=== PATIENT | male | born 1975 | race African-American/Black ===

== ENCOUNTER 2017-04-24 09:16 | Observation (INO) | payer BC ==
[2017-04-24] MEDS ORDERED: Famotidine 20 MG/2 ML SDV IVPUSH ONE (09:21)
[2017-04-24] MEDS ORDERED: Aspirin 81 MG Tab.Chew CHEW ONE (09:21)
[2017-04-24] MEDS ORDERED: Ticagrelor 90 MG Tab PO ONE (09:21)
[2017-04-24] MEDS ORDERED: Sodium Chloride 0.9% 10 ML Syringe FLUSH PRN ×2 (09:21→10:42)
[2017-04-24] MEDS ORDERED: Metoprolol Tartrate 5 MG/5 ML SDV IVPUSH ONE (09:21)
[2017-04-24] MEDS ORDERED: diphenhydrAMINE 50 MG/ML SDV IVPUSH ONE (09:25)
[2017-04-24] MEDS ORDERED: methylPREDNISolone Sodium Succinate 125 MG/2 ML SDV IVPUSH ONE (09:26)
[2017-04-24] MEDS ORDERED: Ondansetron 4 MG/2 ML SDV IVPUSH ONE (09:33)
--- NOTE | 2017-04-24 09:33 | EDM.PDOC ---
ED HPI GENERAL MEDICAL PROBLEM - General Chief Complaint: Chest Pain Stated Complaint: Chest Pain Time Seen by Provider: 04/24/17 09:26 Source of Information: Reports: Patient, EMS, EMS Notes Reviewed. Denies: Old Records (No [facility] records available) History Limitations: Reports: No Limitations - History of Present Illness INITIAL COMMENTS - FREE TEXT/NARRATIVE: The patient was brought to the emergency room via ambulance with aviation medicine specialist accompaniment with initial evaluation by basic EMS and subsequent intercept with the paramedics. Patient apparently had 8/10 retrosternal chest pressure with radiation to the left shoulder and mid left arm and associated with some mild diaphoresis, dyspnea, and nausea. He is allergic to aspirin with no aspirin given in route, although the patient did receive 3 sublingual nitroglycerin tablets with improvement of his chest discomfort to 4/10 in route. He was chest pain-free at time of arrival to our facility. The patient also received O2 at 4 L/m by nasal cannula with saline lock placed prior to arrival. He has had similar type symptoms on a monthly basis during the last 6 months with last episode about 2 months ago. The patient denies any heart flutter, dizziness, orthostasis, orthopnea, paresthesias, recent decreased exercise tolerance, or any other anginal-type symptoms. He has had some intermittent heartburn type symptoms during the last 6 months with last episode 2 days ago and good response to OTC antacids. No recent history of other abdominal pain, diarrhea, melena, gross hematochezia, or any food intolerance, including fatty foods, etc. with normal bowel movement yesterday evening. The patient also denies any recent fever, wheezing, dyspnea, etc., although he has had a mild clear productive cough during the last couple of days with OTC cough medicines and no known exposure to infection. He is having some current increased stressors secondary to problems with his and also with problems at work. Onset: Today, Sudden Onset Date: 04/24/17 Onset Time: 08:00 Duration: Resolved Prior to Arrival Location: Reports: Chest, Upper Extremity, Left, Radiates to (As above). Denies : Head, Face, Neck, Abdomen, Back, Pelvis, Upper Extremity, Right, Lower Extremity, Left Quality: Reports: Pressure, Same as Previous Episode Severity: Moderate Improves with: Reports: Medication Worsens with: Reports: None Context: Reports: Other (As above) Associated Symptoms: Reports: Chest Pain, cough w sputum (As above), Diaphoresis , Nausea/Vomiting (No emesis), Shortness of Breath. Denies: Confusion, Fever/ Chills, Headaches, Loss of Appetite, Malaise, Rash, Seizure, Syncope, Weakness Treatments FOOT DOCTOR: Reports: IV/IO, Nitroglycerin (As above), Oxygen. Denies: Aspirin Left Arm Pain Score (Numeric/FACES): 0 - Related Data Allergies Allergy/AdvReac Type Severity Reaction Status Date / Time aspirin Allergy Swelling Verified 04/24/17 09:22 Home Meds: Home Meds . [No Known Home Meds] 04/24/17 [History] Past Medical History HEENT History: Reports: None. Denies: Allergic Rhinitis, Cataract, Glaucoma, Hard of Hearing, Impaired Vision, Macular Degeneration, Retinal Detachment Cardiovascular History: Reports: None, Other (See Below). Denies: Afib, Aneurysm, Arrhythmia, Blood Clots/VTE/DVT, CAD, Heart Failure, Heart Murmur, High Cholesterol, Hypertension, [place], PVD, SOB on Exertion, Syncope Other Cardiovascular History: he does not know cholesterol status Respiratory History: Reports: None. Denies: Asthma, Bronchitis, Recurrent, COPD , Intubation, Previous, PE, Pneumonia, Recurrent, Pneumothorax, Sleep Apnea Gastrointestinal History: Reports: GERD. Denies: Celiac Disease, Cholelithiasis , Chronic Constipation, Chronic Diarrhea, GI Bleed, Hepatitis, Inflammatory Bowel Disease, Irritable Bowel Syndrome, Jaundice, Pancreatitis, PUD Genitourinary History: Denies: Acute Renal Failure, BPH, Chronic Renal Insuffiency, Renal Calculus, STD, Urinary Incontinence, UTI, Recurrent Musculoskeletal History: Reports: None. Denies: Amputation, Arthritis, Back Pain, Chronic, Fracture, Gout, Neck Pain, Chronic, Osteoarthritis, RA, SLE Neurological History: Reports: None. Denies: Cerebral Aneurysms, Concussion, CVA, Headaches, Chronic, Head Trauma, Migraines, MS, Parkinson's, Seizure, TIA Psychiatric History: Reports: Anxiety, Depression, Psych Hospitalization(s), Suicide Attempt, Suicidal Ideation, Other (See Below). Denies: Abuse, Victim of , ADD, ADHD, Addiction, PTSD Other Psychiatric History: Inpatient treatment for attempted suicide with pill overdose at about age 15 Endocrine/Metabolic History: Reports: None. Denies: Diabetes, Type I, Diabetes , Type II, Hypothyroidism, IDDM Hematologic History: Reports: None. Denies: Anemia, Blood Transfusion(s), Iron Deficiency Immunologic History: Reports: None. Denies: AIDS, HIV, SLE Oncologic (Cancer) History: Reports: None. Denies: Basal Cell Carcinoma, Hodgkin's Lymphoma, Leukemia, Lymphoma, Malignant Melanoma, Non-Hodgkin's Lymphoma, Squamous Cell Carcinoma Dermatologic History: Reports: None. Denies: Eczema, Psoriasis - Infectious Disease History Infectious Disease History: Reports: Chicken Pox. Denies: C-Difficile, Measles , Meningitis, Mononucleosis, MRSA, Mumps, Pertussis (Whooping Cough), Rheumatic Fever, Rubella, Scarlet Fever, Shingles, VRE - Past Surgical History Head Surgeries/Procedures: Reports: None HEENT Surgical History: Reports: Oral Surgery, Other (See Below). Denies: Adenoidectomy, Detached Retina, Eye Surgery, Laser Surgery, LASIK, Myringotomy w Tube(s), Naso-Sinus Surgery, Tonsillectomy Other HEENT Surgeries/Procedures: [place] teeth extraction in his mid 20s Cardiovascular Surgical History: Reports: None. Denies: Varicose Respiratory Surgical History: Reports: None. Denies: Thoracentesis GI Surgical History: Reports: None. Denies: Appendectomy, Cholecystectomy, Colonoscopy, EGD, Hernia, Abdominal, Hernia, Inguinal, Hernia Repair/Other Male Surgical History: Reports: Circumcision, Other (See Below). Denies: Vasectomy Other Male Surgeries/Procedures: Circumcision as an Endocrine Surgical History: Reports: None. Denies: Thyroid Biopsy Neurological Surgical History: Reports: None. Denies: C-Spine, Discectomy, Laminectomy, Lumbar Spine, Spinal Fusion, Vertebroplasty Musculoskeletal Surgical History: Reports: None. Denies: Arthroscopic Knee, Arthroscopic Procedure, Carpal Tunnel, Ganglion Cyst, Joint Replacement, ORIF, Shoulder Surgery Oncologic Surgical History: Reports: None Dermatological Surgical History: Reports: None - Past Imaging History Past Imaging History: Reports: None Social & Family History - Family History HEENT: Reports: Glaucoma, Other (See Below). Denies: Allergic Rhinitis, Macular Degeneration, Retinal Detachment Other HEENT Family History: Mother and paternal uncle with glaucoma Cardiac: Reports: None. Denies: Aneurysm, Arrhythmia, Blood Clots/VTE/DVT, CAD , Heart Failure, High Cholesterol, Hypertension, [place], PVD/COD, Other (See Below) Respiratory: Reports: None. Denies: Asthma, COPD, PE, Pneumothorax, Sleep Apnea GI: Reports: None. Denies: Celiac Disease, Cholelithiasis, Colon Polyps, GERD, GI bleed, Inflammatory Bowel Disease, Irritable Bowel Syndrome, PUD : Reports: None. Denies: Dialysis, Renal Calculus, Renal Disease/ Insufficiency OBGYN: Reports: None. Denies: Endometriosis, Recurrent Spontaneous Musculoskeletal: Reports: None. Denies: Gout, Osteoarthritis, RA, SLE Neurological: Reports: CVA, Other (See Below). Denies: Alzheimers Disease, Cerebral Aneurysms, Dementia, Migraines, MS, Parkinson's, Seizure, TIA Other Neurological Family History: Maternal aunt with CVA in her 50s Psychiatric: Reports: None. Denies: Abuse, Victim of, ADD, ADHD, Anxiety, Depression, Psych Hospitalization(s), PTSD, Suicide Attempt Endocrine/Metabolic: Reports: None. Denies: Diabetes, Type I, Diabetes, type II , Hypothyroidism, IDDM Hematologic: Reports: None. Denies: Anemia, SLE, Transfusion Reaction Immunologic: Reports: None. Denies: AIDS, HIV, SLE Dermatologic: Reports: None. Denies: Eczema, Psoriasis Oncologic: Reports: None. Denies: Colon, Hodgkin's Lymphoma, Leukemia, Lymphoma , Non-Hodgkin's Lymphoma, Prostate, Skin - Tobacco Use Smoking Status *Q: Current Every Day Smoker Tobacco Use Within Last Twelve Months: Cigarettes Years of Tobacco use: 23 Packs/Tins Daily: 0.5 (Maximum use of one pack per day and started smoking at age 19) Smoking Cessation Information Provided To Patient: Yes Second Hand Smoke Exposure: No Second Hand Smoke Education Provided: No - Caffeine Use Caffeine Use: Reports: Coffee (2 cups 2 times per week), Energy Drinks (2 cans per day), Soda (2 sodas per day). Denies: Tea - Alcohol Use Alcohol Use History: Yes Days Per Week of Alcohol Use: 7 (DUI at age 31 with no previous history of alcohol abuse or treatment) Number of Drinks Per Day: 4 (Usually beer or mixed drinks) Total Drinks Per Week: 28 Date of Last Drink: 04/23/17 Alcohol Use in Last Twelve Months: Yes Alcohol Use Frequency: Daily - Recreational Drug Use Recreational Drug Use: No Drug Use in Last 12 Months: No Recreational Drug Type: Denies: Amphetamines (Speed), Cocaine, Heroin, Inhalants (Glues, Solvents, Aerosols), LSD (Acid), Methamphetamine - Sexual History Sexual History: Reports: Single Partner - Living Situation & Occupation Living situation: Reports: ( second on 04/24/16 with 3 children with one child from current relationship), (First in 2013 with one child from that relationship with another child from another relationship) Occupation: Employed ([employer]) ED ROS GENERAL - Review of Systems Review Of Systems: See Below Constitutional: Reports: Diaphoresis. Denies: Fever, Chills, Malaise, Weakness , Fatigue, Night Sweats, Decreased Appetite, Weight Loss, Weight Gain HEENT: Denies: Contact Lenses, Dental Pain, Ear Pain, Eye Pain, Glasses, Hearing Loss, Rhinitis, Sinus Problem, Throat Pain, Vertigo, Vision Change Respiratory: Reports: Shortness of Breath, Cough, Sputum (Clear). Denies: Wheezing, Pleuritic Chest Pain, Hemoptysis Cardiovascular: Reports: Chest Pain. Denies: Blood Pressure Problem, Claudication, Dyspnea on Exertion, Edema, Lightheadedness, Orthopnea, Palpitations, PND, Syncope Endocrine: Reports: No Symptoms. Denies: High Glucose GI/Abdominal: Reports: Nausea. Denies: Abdominal Pain, Anorexia, Black Stool, Bloody Stool, Constipation, Diarrhea, Decreased Appetite, Difficulty Swallowing , Distension, Hematemesis, Hematochezia, Melena, Stool Incontinence, Vomiting : Reports: No Symptoms. Denies: Discharge, Dysuria, Flank Pain, Frequency, Hematuria, Incontinence, Pain, Urgency, Urinary Retention Musculoskeletal: Reports: Shoulder Pain (Radiated chest pain as above), Arm Pain (Left shoulder to mid arm as above). Denies: Neck Pain, Leg Pain, Joint Pain Skin: Reports: Diaphoresis. Denies: Pallor, Bruising, Pruritis, Wound Neurological: Reports: No Symptoms. Denies: Confusion, Dizziness, Headache, Paresthesia, Seizure, Syncope, Trouble Speaking, Weakness, Change in Speech, Gait Disturbance Psychiatric: Reports: Anxiety (Increased stressors as above), Depression. Denies: Agitation, Confusion, Hallucinations, Homicidal Ideation, Mood Lability , Suicidal Ideation Hematologic/Lymphatic: Reports: No Symptoms Immunologic: Reports: No Symptoms ED EXAM, GENERAL - Physical Exam Exam: See Below Exam Limited By: No Limitations General Appearance: Alert, WD/WN, No Apparent Distress, Anxious (Mild to moderate) Eye Exam: Bilateral Eye: EOMI, Normal Inspection (No nystagmus), PERRL Ears: Normal External Exam, Normal Canal, Hearing Grossly Normal, Normal TMs Nose: Normal Inspection, Normal Mucosa, No Blood Throat/Mouth: Normal Inspection, Normal Lips, Normal Teeth, Normal Gums, Normal Oropharynx, Normal Voice, No Airway Compromise. No: Dysphagia, Perioral Cyanosis Head: Atraumatic, Normocephalic. No: Facial Swelling, Facial Tenderness, Sinus Tenderness Neck: Normal Inspection, Supple, Non-Tender, Full Range of Motion. No: Carotid Bruit, Lymphadenopathy (L), Lymphadenopathy (R), Thyromegaly Respiratory/Chest: No Respiratory Distress, Lungs Clear, Normal Breath Sounds, No Accessory Muscle Use, Chest Non-Tender. No: Pleural Rub, Retractions Cardiovascular: Normal Peripheral Pulses, Regular Rate, Rhythm, No Edema, No Gallop, No JVD, No Murmur, No Rub. No: Gallop/S3, Gallop/S4, Friction Rub Peripheral Pulses: 4+: Radial (L), Radial (R), Dorsalis Pedis (L), Dorsalis Pedis (R) GI/Abdominal: Normal Bowel Sounds, Soft, Non-Tender, No Organomegaly, No Distention, No Abnormal Bruit, No Mass, Pelvis Stable. No: Hernia (Male) Exam: Deferred Rectal (Males) Exam: Deferred Back Exam: Normal Inspection, Full Range of Motion. No: CVA Tenderness (L), CVA Tenderness (R), Muscle Spasm Extremities: Normal Inspection, Normal Range of Motion, Non-Tender, No Pedal Edema, Normal Capillary Refill. No: Kitty's Sign Neurological: Alert, Oriented, CN II-XII Intact, Normal Cognition, Normal Gait, Normal Reflexes (Negative Babinski's), No Motor/Sensory Deficits Psychiatric: Anxious (Mild to moderate), Depressed Mood (Mild to moderate with adequate eye contact) Skin Exam: Warm, Dry, Intact, Normal Color, No Rash, Tattoo(s) (Multiple). No: Diaphoretic, Ecchymosis, Petechiae, Wound/Incision Lymphatic: No Adenopathy EKG INTERPRETATION EKG Date: 04/24/17 Time: 09:14 Rhythm: NSR Rate (Beats/Min): 73 [place]: Normal (Neutral) P-Wave: Enlarged (Moderate diffuse biphasic) QRS: RBBB (QRS interval 0.10 seconds representing an incomplete right bundle branch block with T-wave inversion in lead V1 and mild to moderate poor R-wave progression in the anterior leads) ST-T: Normal (Peaked T waves) QT: Normal VT/PQ Interval: 0.14 seconds Comparison: No Change (With no change from EKG taken by paramedics although somewhat noisy baseline in their evaluation) EKG Interpretation Comments: 1. No acute ischemic changes 2. Incomplete right bundle branch block 3. Probable left atrial enlargement Course - Vital Signs Last Recorded V/S: Last Vital Signs Temp 36.9 C 04/24/17 09:18 Pulse 55 L 04/24/17 10:12 Resp 20 04/24/17 10:12 BP 127/74 04/24/17 10:12 Pulse Ox 100 04/24/17 10:12 Vital Signs - 24 hr 04/24/17 04/24/17 04/24/17 09:18 09:21 09:26 Temperature [ 36.9 C Oral] Pulse, 87 Peripheral Pulse, 71 61 Peripheral [ Right Pulse Oximetry] Respiratory 20 20 Rate Blood Pressure 134/67 Blood Pressure 143/67 H 131/84 [Right Upper Arm] O2 Sat by Pulse 100 100 Oximetry 04/24/17 04/24/17 04/24/17 09:42 09:57 10:12 Temperature [ Oral] Pulse, Peripheral Pulse, 58 L 55 L Peripheral [ Right Pulse Oximetry] Respiratory 17 18 20 Rate Blood Pressure Blood Pressure 118/84 127/83 127/74 [Right Upper Arm] O2 Sat by Pulse 100 100 100 Oximetry - Orders/Labs/Meds Orders: Active Orders 24 hr Category Date Time Status Cardiac Monitoring [RC] . DIRECTED Care 04/24/17 09:21 Active EKG Documentation Completion [RC] ASDIRECTED Care 04/24/17 09:21 Active Oxygen Therapy, ED [RC] CONTINUOUS Care 04/24/17 09:21 Active Peripheral IV Care [RC] . DIRECTED Care 04/24/17 09:21 Active Pulse Oximetry [RC] CONTINUOUS Care 04/24/17 09:21 Active Up With Assistance [RC] PFP Care 04/24/17 09:21 Active Vital Signs [RC] PFP Care 04/24/17 09:21 Active Nothing per Oral Now Diet [DIET] Diet 04/24/17 Breakfast Active Chest 1V Frontal [CR] Stat Exams 04/24/17 09:21 Taken Sodium Chloride 0.9% [Saline Flush] Med 04/24/17 09:21 Active 10 ml FLUSH ASDIRECTED PRN Obtain Past Medical Record [OM.PC] Urgent Oth 04/24/17 09:21 Active Peripheral IV Insertion Adult [OM.PC] Stat Oth 04/24/17 09:21 Ordered Resuscitation Status Stat Resus Stat 04/24/17 09:21 Ordered Medication Orders Sodium Chloride (Saline Flush) 10 ml FLUSH ASDIRECTED PRN PRN Reason: Keep Vein Open Labs: Laboratory Tests 04/24/17 04/24/17 04/24/17 Range/Units 09:18 09:18 09:18 WBC 6.3 (4.0-10.2) K/uL RBC 5.00 (4.33-5.41) M/uL Hgb 14.3 (13.1-16.8) g/dL Hct 42.2 (39.0-49.0) % MCV 84.4 (84.0-98.0) fL MCH 28.6 (28.2-33.3) pg MCHC 33.9 (31.7-36.0) g/dL RDW 13.8 (11.2-14.1) % Plt Count 269 (150-350) K/uL Neut % (Auto) 47.9 (45.0-80.0) % Lymph % (Auto) 38.5 (10.0-50.0) % [place] % (Auto) 9.0 (2.0-14.0) % Eos % (Auto) 4.4 (0.0-5.0) % Baso % (Auto) 0.2 (0.0-2.0) % Neut # (Auto) 3.03 (1.40-7.00) K/uL Lymph # (Auto) 2.44 (0.50-3.50) K/uL [place] # (Auto) 0.57 (0.00-1.00) K/uL Eos # (Auto) 0.28 (0.00-0.50) K/uL Baso # (Auto) 0.01 (0.00-0.20) K/uL PT 10.5 (9.8-11.7) SEC INR 1.0 APTT 26.2 (23.5-30.0) SEC D-Dimer, Quantitative < 100 (0-400) ng/mL Sodium (136-145) mmol/L Potassium (3.5-5.1) mmol/L Chloride (98-107) mmol/L Carbon Dioxide (21.0-32.0) mmol/L BUN (7-18) mg/dL Creatinine (0.51-1.17) mg/dL Est Cr Clr Drug Dosing mL/min Estimated GFR (MDRD) mL/min Glucose (74-106) mg/dL Lactic Acid (0.4-2.0) mmol/L Uric Acid (2.6-7.2) mg/dL Calcium (8.5-10.1) mg/dL Magnesium (1.8-2.4) mg/dL Total Bilirubin (0.2-1.0) mg/dL AST (15-37) U/L ALT (12-78) U/L Alkaline Phosphatase (46-116) IU/L Creatine Kinase (26-308) U/L Creatine Kinase Index (0.0-2.5) % CK-MB (CK-2) (0.00-3.60) ng/mL Troponin I (0.000-0.056) ng/mL NT-Pro-B Natriuret Pep (0-125) pg/mL Total Protein (6.4-8.2) g/dL Albumin (3.4-5.0) g/dL TSH, Ultra Sensitive (0.358-3.740) mIU/mL 04/24/17 04/24/17 Range/Units 09:18 09:18 WBC (4.0-10.2) K/uL RBC (4.33-5.41) M/uL Hgb (13.1-16.8) g/dL Hct (39.0-49.0) % MCV (84.0-98.0) fL MCH (28.2-33.3) pg MCHC (31.7-36.0) g/dL RDW (11.2-14.1) % Plt Count (150-350) K/uL Neut % (Auto) (45.0-80.0) % Lymph % (Auto) (10.0-50.0) % [place] % (Auto) (2.0-14.0) % Eos % (Auto) (0.0-5.0) % Baso % (Auto) (0.0-2.0) % Neut # (Auto) (1.40-7.00) K/uL Lymph # (Auto) (0.50-3.50) K/uL [place] # (Auto) (0.00-1.00) K/uL Eos # (Auto) (0.00-0.50) K/uL Baso # (Auto) (0.00-0.20) K/uL PT (9.8-11.7) SEC INR APTT (23.5-30.0) SEC D-Dimer, Quantitative (0-400) ng/mL Sodium 140 (136-145) mmol/L Potassium 3.4 L (3.5-5.1) mmol/L Chloride 103 (98-107) mmol/L Carbon Dioxide 24.5 (21.0-32.0) mmol/L BUN 8 (7-18) mg/dL Creatinine 1.18 H (0.51-1.17) mg/dL Est Cr Clr Drug Dosing 87.74 mL/min Estimated GFR (MDRD) > 60 mL/min Glucose 113 H (74-106) mg/dL Lactic Acid 2.5 H (0.4-2.0) mmol/L Uric Acid 6.9 (2.6-7.2) mg/dL Calcium 9.3 (8.5-10.1) mg/dL Magnesium 1.7 L (1.8-2.4) mg/dL Total Bilirubin 0.3 (0.2-1.0) mg/dL AST 24 (15-37) U/L ALT 23 (12-78) U/L Alkaline Phosphatase 67 (46-116) IU/L Creatine Kinase 405 H (26-308) U/L Creatine Kinase Index 0.2 (0.0-2.5) % CK-MB (CK-2) 0.80 (0.00-3.60) ng/mL Troponin I 0.000 (0.000-0.056) ng/mL NT-Pro-B Natriuret Pep 9 (0-125) pg/mL Total Protein 8.3 H (6.4-8.2) g/dL Albumin 4.1 (3.4-5.0) g/dL TSH, Ultra Sensitive 1.496 (0.358-3.740) mIU/mL Meds: Medications Generic Name Dose Route Start Last Admin Trade Name Freq PRN Reason Stop Dose Admin Sodium Chloride 10 ml 04/24/17 09:21 Saline Flush FLUSH ASDIRECTED PRN Keep Vein Open Discontinued Medications Generic Name Dose Route Start Last Admin Trade Name Freq PRN Reason Stop Dose Admin Aspirin 324 mg 04/24/17 09:21 04/24/17 09:24 Aspirin CHEW 04/24/17 09:22 324 mg ONETIME ONE Administration Diphenhydramine HCl 50 mg 04/24/17 09:25 04/24/17 09:30 Benadryl IVPUSH 04/24/17 09:26 50 mg ONETIME ONE Administration Famotidine 40 mg 04/24/17 09:21 04/24/17 09:25 Pepcid IVPUSH 04/24/17 09:22 40 mg ONETIME ONE Administration Methylprednisolone Sodium Succinate 125 mg 04/24/17 09:26 04/24/17 09:29 Solu-Medrol IVPUSH 04/24/17 09:27 125 mg ONETIME ONE Administration Metoprolol Tartrate 2.5 mg 04/24/17 09:21 04/24/17 09:26 Lopressor IVPUSH 04/24/17 09:22 2.5 mg ONETIME ONE Administration Ondansetron HCl 4 mg 04/24/17 09:33 04/24/17 09:35 Zofran IVPUSH 04/24/17 09:34 4 mg ONETIME ONE Administration Ticagrelor 180 mg 04/24/17 09:21 04/24/17 09:25 Brilinta PO 04/24/17 09:22 180 mg ONETIME ONE Administration - Radiology Interpretation Free Text/Narrative:: teletypesetter monitor showed initial sinus rhythm with heart rate in the 70s with subsequent development of mild to moderate bradycardia after administration of IV Lopressor with lowest heart rate of 53 and average heart rate in the mid to high 50s at time of admission. There is no evidence of other significant ectopy or other arrhythmia Chest x-ray, portable, shows evidence of probable mild pulmonary obstructive disease with questionable mild right middle lobe pulmonary infiltrates versus atelectasis. There is also some prominence of the posterior left first rib articulation site with osteophytic changes in this area. No pneumothorax or cardiomegaly. Possible mild pulmonary hypertension versus mild centralized CHF Departure - Departure Time of Disposition: 10:25 Disposition: Refer to Observation Condition: Good Clinical Impression: Incomplete right bundle branch block, Left atrial enlargement, Peptic reflux disease, Tobacco abuse counseling, Mixed anxiety depressive disorder, Renal insufficiency, Hypokalemia, Lactic acid blood increased, Hypomagnesemia, Elevated CPK Chest pain Qualifiers: Chest pain type: precordial pain Qualified Code(s): R07.2 - Precordial pain COPD (chronic obstructive pulmonary disease) Qualifiers: COPD type: emphysema Emphysema type: panlobular Qualified Code(s): J43.1 - Panlobular emphysema - Problem List & Annotations (1) Chest pain SNOMED Code(s): 97936335 Code(s): R07.9 - CHEST PAIN, UNSPECIFIED Priority: High Current Visit: Yes Onset Date: 04/24/17 Annotation/Comment:: Chest pain protocol initiated in the emergency room immediately upon patient's arrival to this facility with some treatment in route by the paramedics as above. The patient was counseled on the risks and benefits of additional aspirin therapy. He is uncertain about what type of reaction to aspirin he had in the past although possibility of some mild facial swelling or angioedema quite some time ago. He does tolerate OTC NSAIDs, however. Patient did agree to baby aspirin 4 chew and swallow with IV Solu-Medrol and IV Benadryl given as allergic prophylaxis. Initiate standard rule out [place] orders with cardiology consultation depending on his clinical course. Probable Cardiolite stress test on an outpatient basis. He is chest pain -free at time of admission, although he did have some mild nausea early in his care requiring IV Zofran use as above Qualifiers: Chest pain type: precordial pain Qualified Code(s): R07.2 - Precordial pain (2) COPD (chronic obstructive pulmonary disease) SNOMED Code(s): 00666436 Code(s): J44.9 - CHRONIC OBSTRUCTIVE PULMONARY DISEASE, UNSPECIFIED Priority: Medium Current Visit: Yes Onset Date: ~04/24/17 Annotation/ Comment:: Probable COPD by chest x-ray with mild probable viral bronchitis at this time. Tobacco cessation strongly encouraged with tobacco cessation information to be provided at discharge. Consider PFTs once his cardiac status has been determined Qualifiers: COPD type: emphysema Emphysema type: panlobular Qualified Code(s): J43.1 - Panlobular emphysema (3) Incomplete right bundle branch block SNOMED Code(s): 292689991 Code(s): I45.10 - UNSPECIFIED RIGHT BUNDLE-BRANCH BLOCK Priority: Medium Current Visit: Yes Onset Date: 04/24/17 Annotation/Comment:: Nonsymptomatic with some bradycardia secondary to IV Lopressor (4) Left atrial enlargement SNOMED Code(s): 92688208606641 Code(s): I51.7 - CARDIOMEGALY Priority: Medium Current Visit: Yes Onset Date: 04/24/17 Annotation/Comment:: Some left atrial enlargement by EKG but not by chest x-ray. Consider echocardiogram depending on his clinical course (5) Mixed anxiety depressive disorder SNOMED Code(s): 705353096 Code(s): F41.8 - OTHER SPECIFIED ANXIETY DISORDERS Status: Chronic Priority: Medium Current Visit: Yes Annotation/Comment:: Note increased family and work stressors as above. Continue to observe closely with consideration of medical therapy prior to discharge (6) Peptic reflux disease SNOMED Code(s): 62691489 Code(s): K21.9 - GASTRO-ESOPHAGEAL REFLUX DISEASE WITHOUT ESOPHAGITIS Status: Chronic Priority: Medium Current Visit: Yes Annotation/Comment:: High-dose IV Pepcid given as GI prophylaxis. H. pylori stool antigen and Hemoccult of stool to be collected during this hospitalization (7) Tobacco abuse counseling SNOMED Code(s): 868299488, 074214472, [id number] Code(s): Z71.6 - TOBACCO ABUSE COUNSELING Status: Chronic Priority: Medium Current Visit: Yes Annotation/Comment:: As above. The patient was also counseled on the importance of discontinuing all energy drink use (8) Elevated CPK SNOMED Code(s): 931575701 Code(s): R74.8 - ABNORMAL LEVELS OF OTHER SERUM ENZYMES Status: Chronic Priority: Medium Current Visit: Yes Onset Date: 04/24/17 Annotation/ Comment:: Observe for now and likely secondary to physical activity at work, etc. by patient history. Initiate IV fluids secondary to his hypokalemia and CPK elevation with no direct evidence of rhabdomyolysis (9) Hypokalemia SNOMED Code(s): 65845301 Code(s): E87.6 - HYPOKALEMIA Status: Acute Priority: Medium Current Visit: Yes Onset Date: 04/24/17 Annotation/Comment:: Apparent mild loose stools recently with no history of emesis. IV fluids as above (10) Hypomagnesemia SNOMED Code(s): 995310317 Code(s): E83.42 - HYPOMAGNESEMIA Status: Acute Priority: Medium Current Visit: Yes Onset Date: 04/24/17 Annotation/Comment:: Initiate magnesium oxide therapy (11) Lactic acid blood increased SNOMED Code(s): 2561993 Code(s): R79.89 - OTHER SPECIFIED ABNORMAL FINDINGS OF BLOOD CHEMISTRY Status: Acute Priority: High Current Visit: Yes Onset Date: 04/24/17 Annotation/Comment:: No clinical evidence of sepsis. Initiate IV fluids as above. Lactic acid with next cardiac enzymes and in the a.m. (12) Renal insufficiency SNOMED Code(s): 915721966 Code(s): N28.9 - DISORDER OF KIDNEY AND URETER, UNSPECIFIED Status: Acute Priority: Medium Current Visit: Yes Onset Date: 04/24/17 Annotation/ Comment:: Borderline mild renal insufficiency as above. IV fluids as above. - Problem List Review Problem List Initiated/Reviewed/Updated: Yes - My Orders Last 24 Hours: My Active Orders 04/24/17 09:21 Cardiac Monitoring [RC] . DIRECTED EKG Documentation Completion [RC] ASDIRECTED Oxygen Therapy, ED [RC] CONTINUOUS Peripheral IV Care [RC] . DIRECTED Pulse Oximetry [RC] CONTINUOUS Up With Assistance [RC] PFP Vital Signs [RC] PFP Chest 1V Frontal [CR] Stat Sodium Chloride 0.9% [Saline Flush] 10 ml FLUSH ASDIRECTED PRN Obtain Past Medical Record [OM.PC] Urgent Peripheral IV Insertion Adult [OM.PC] Stat Resuscitation Status Stat 04/24/17 Breakfast Nothing per Oral Now Diet [DIET] - Assessment/Plan Admission H&P: Please use this note as an admission H&P Last 24 Hours: My Active Orders 04/24/17 09:21 Cardiac Monitoring [RC] . DIRECTED EKG Documentation Completion [RC] ASDIRECTED Oxygen Therapy, ED [RC] CONTINUOUS Peripheral IV Care [RC] . DIRECTED Pulse Oximetry [RC] CONTINUOUS Up With Assistance [RC] PFP Vital Signs [RC] PFP Chest 1V Frontal [CR] Stat Sodium Chloride 0.9% [Saline Flush] 10 ml FLUSH ASDIRECTED PRN Obtain Past Medical Record [OM.PC] Urgent Peripheral IV Insertion Adult [OM.PC] Stat Resuscitation Status Stat 04/24/17 Breakfast Nothing per Oral Now Diet [DIET] Assessment:: As above Plan: As above. Extensive precautions were given to the patient, who is in agreement with the treatment plan. The patient's condition is stable enough for observation status and general supervision.
[2017-04-24 10:03] LABS: CHLORIDE,CL 103 mmol/L (98-107); SODIUM,NA 140 mmol/L (136-145)
[2017-04-24] MEDS ORDERED: Temazepam 15 MG Cap PO PRN (10:42)
[2017-04-24] MEDS: Magnesium Oxide 400 MG Tab PO SCH (11:05)
[2017-04-24] MEDS: Acetaminophen 325 MG Tab PO PRN ×2 (11:05→16:05)
[2017-04-24] MEDS: Dextrose 5%-0.9% NaCl with KCl 1,000 ML IV SCH ×2 (11:06→21:05)
[2017-04-24] MEDS ORDERED: Ondansetron 4 MG/2 ML SDV IVPUSH PRN (14:00)
[2017-04-25 07:38] LABS: CHLORIDE,CL 106 mmol/L (98-107); SODIUM,NA 139 mmol/L (136-145)
[2017-04-25] MEDS: Magnesium Oxide 400 MG Tab PO SCH (07:51)
[2017-04-25] MEDS: Dextrose 5%-0.9% NaCl with KCl 1,000 ML IV SCH (07:52)
[2017-04-25 08:00] VITALS: BP 123/80
--- NOTE | 2017-04-25 09:07 | PCM.DCSUM1 ---
Discharge Summary - Hospital Course HPI Initial Comments: See emergency room note/admission H&P Brief History: See emergency room note/admission H&P - Discharge Data Discharge Date: 04/25/17 Discharge Disposition: DC/Tfer to Acute Hospital 02 Condition: Good - Discharge Diagnosis/Problem(s) (1) Chest pain SNOMED Code(s): 95593192 ICD Code: R07.9 - CHEST PAIN, UNSPECIFIED Priority: High Current Visit: Yes Onset Date: 04/24/17 Problem Details: Negative workup for acute SC with negative serial cardiac enzymes 4, negative d-dimer, and negative BNP with moderate CPK elevation on admission resolved at time of transfer. Note normal cardiac index and CK-MB with no evidence of rhabdomyolysis. Patient did exhibit significant cardiac arrhythmia during the evening, including moderate to severe bradycardia with lowest heart rate of 35 as below. Frequent PACs, PVCs, long pauses, and stable incomplete right bundle branch block with new T-wave inversion in lead V2 in this morning's EKG indicative of probable anterior wall cardiac ischemia. Telephone consultation at 08:40 hours this morning with Dr. Lind, hospitalist at [facility] in [place], who does accept the patient for direct admission and probable Cardiolite stress test, cardiology consultation, and/or heart catheterization. No further treatment recommendations given. Ambulance transfer with tele grout sewer line repairer accompaniment. Per accepting physician strict no caffeine heart healthy diet reinitiated this morning. The patient was chest pain free throughout this hospitalization and also at time of transfer. Some delay in hospital transfer without sequelae secondary to bed availability. Chest pain protocol initiated in the emergency room immediately upon patient's arrival to this facility with 3 sublingual nitroglycerin tablets 3 given in route by the paramedics. The patient was counseled on the risks and benefits of additional aspirin therapy. He is uncertain about what type of reaction to aspirin he had in the past although possibility of some mild facial swelling or angioedema quite some time ago. He does tolerate OTC NSAIDs, however. Patient did agree to baby aspirin 4 chew and swallow with IV Solu-Medrol and IV Benadryl given as allergic prophylaxis. He was chest pain-free at time of admission, although he did have some mild nausea early in his care requiring IV Zofran during initial phases of hospitalization. Work excuse provided to the patient. Qualifiers: Chest pain type: precordial pain Qualified Code(s): R07.2 - Precordial pain (2) Incomplete right bundle branch block SNOMED Code(s): 567391022 ICD Code: I45.10 - UNSPECIFIED RIGHT BUNDLE-BRANCH BLOCK Priority: Medium Current Visit: Yes Onset Date: 04/24/17 Problem Details: Nonsymptomatic with some bradycardia on admission secondary to low-dose 2.5 mg of IV Lopressor given at time of chest pain protocol as above. No further beta blockers, etc. were given during this hospitalization. Note significant cardiac arrhythmia and bradycardia as above. (3) Frequent PVCs SNOMED Code(s): 95844387 ICD Code: I49.3 - VENTRICULAR PREMATURE DEPOLARIZATION Status: Acute Priority: High Current Visit: Yes Onset Date: 04/24/17 Problem Details: As above. Consider event versus Holter monitor depending on cardiac workup as above (4) PAC (premature atrial contraction) SNOMED Code(s): 421960423 ICD Code: I49.1 - ATRIAL PREMATURE DEPOLARIZATION Status: Acute Priority : High Current Visit: Yes Onset Date: 04/24/17 Problem Details: As above (5) COPD (chronic obstructive pulmonary disease) SNOMED Code(s): 65464235 ICD Code: J44.9 - CHRONIC OBSTRUCTIVE PULMONARY DISEASE, UNSPECIFIED Priority: Medium Current Visit: Yes Onset Date: ~04/24/17 Problem Details : Probable COPD by chest x-ray with mild probable viral bronchitis at this time. Official chest x-ray report from yesterday's evaluation does indicate some prominence of the right perihilar region with recommendation by the radiologist of either repeat chest x-ray and/or baseline CT scan of the chest. No significant cough, history of hemoptysis, etc. at this time. Dr. Lind is aware of the above recommendations. Tobacco cessation strongly encouraged with tobacco cessation information to be provided at discharge. Consider PFTs once his cardiac status has been determined Qualifiers: COPD type: emphysema Emphysema type: panlobular Qualified Code(s): J43.1 - Panlobular emphysema (6) Left atrial enlargement SNOMED Code(s): 15882462644538 ICD Code: I51.7 - CARDIOMEGALY Status: Acute Priority: Medium Current Visit: Yes Onset Date: 04/24/17 Problem Details: Some left atrial enlargement by EKG but not by chest x-ray. Consider echocardiogram depending on his clinical course (7) Mixed anxiety depressive disorder SNOMED Code(s): 482964753 ICD Code: F41.8 - OTHER SPECIFIED ANXIETY DISORDERS Status: Chronic Priority: Medium Current Visit: Yes Problem Details: Note increased family and work stressors as above. Continue to observe closely with consideration of medical therapy prior to discharge. Caring relatiionship with his , Sarah, noted during hospital rounds this morning. Emotional support provided. (8) Peptic reflux disease SNOMED Code(s): 42695193 ICD Code: K21.9 - GASTRO-ESOPHAGEAL REFLUX DISEASE WITHOUT ESOPHAGITIS Status: Chronic Priority: Medium Current Visit: Yes Problem Details: High- dose IV Pepcid given as GI prophylaxis. H. pylori stool antigen and Hemoccult of stool was ordered to be collected during this hospitalization, however no bowel movement since admission (9) Tobacco abuse counseling SNOMED Code(s): 014690856, 374836833, 462203875 ICD Code: Z71.6 - TOBACCO ABUSE COUNSELING Status: Chronic Priority: Medium Current Visit: Yes Problem Details: As above. The patient was also counseled on the importance of discontinuing all energy drink use (10) Elevated CPK SNOMED Code(s): 491145573 ICD Code: R74.8 - ABNORMAL LEVELS OF OTHER SERUM ENZYMES Status: Chronic Priority: Medium Current Visit: Yes Onset Date: 04/24/17 Problem Details: CK elevation resolved at time of transfer as above. Observe for now and likely secondary to physical activity at work, etc. by patient history. IV fluids secondary to his hypokalemia and CPK elevation initiated on admission with no direct evidence of rhabdomyolysis. IV fluids discontinued at discharge with some mild weight gain during this hospitalization, however no clinical evidence of CHF (11) Hypokalemia SNOMED Code(s): 88529187 ICD Code: E87.6 - HYPOKALEMIA Status: Acute Priority: Medium Current Visit: Yes Onset Date: 04/24/17 Problem Details: Apparent mild loose stools recently with no history of emesis. IV fluids as above (12) Hypomagnesemia SNOMED Code(s): 903527409 ICD Code: E83.42 - HYPOMAGNESEMIA Status: Acute Priority: Medium Current Visit: Yes Onset Date: 04/24/17 Problem Details: Initiated magnesium oxide therapy on admission with normal magnesium level at discharge (13) Lactic acid blood increased SNOMED Code(s): 9074111 ICD Code: R79.89 - OTHER SPECIFIED ABNORMAL FINDINGS OF BLOOD CHEMISTRY Status: Acute Priority: High Current Visit: Yes Onset Date: 04/24/17 Problem Details: No clinical evidence of sepsis. Initiated IV fluids as above. Lactic acid levels normal at transfer. (14) Renal insufficiency SNOMED Code(s): 483648140 ICD Code: N28.9 - DISORDER OF KIDNEY AND URETER, UNSPECIFIED Status: Acute Priority: Medium Current Visit: Yes Onset Date: 04/24/17 Problem Details: Borderline mild renal insufficiency on admission. IV fluids as above. Normal renal function at discharge (15) Hyperglycemia SNOMED Code(s): 68575502 ICD Code: R73.9 - HYPERGLYCEMIA, UNSPECIFIED Status: Acute Priority: Medium Current Visit: Yes Onset Date: 04/24/17 Problem Details: Note persistent mild hyperglycemia this morning, however IV Solu-Medrol was given in the emergency room prior to admission as above. Glycosylated hemoglobin only minimally elevated today at 5.8%. Lipid profile is excellent. ADA/low carbohydrate diet recommended during hospital rounds with further close up by his regular provider (16) Hypoalbuminemia SNOMED Code(s): 668961544 ICD Code: E88.09 - OTH DISORDERS OF PLASMA-PROTEIN METABOLISM, NEC Status: Acute Priority: Medium Current Visit: Yes Onset Date: 04/25/17 Problem Details: Observe for now - Patient Summary/Data Operative Procedure(s) Performed: None, although possible heart catheterization , etc. by accepting providers as above/below Complications: Cardiac arrhythmia as above Consults: Hospitalists as above Labs Pending at D/C: None Recommended Follow-up Testing/Procedures: Possible cardiology consultation, Cardiolite stress test, heart catheterization , echocardiogram, and/or event monitor as above with this discussed the patient and his prior to transfer Planned Operative Procedure(s) after DC: As above Hospital Course: The patient was admitted to observation status on telemetry after initiation of standard chest pain protocol in the emergency room as above. He did exhibit some possible evidence of anterior wall cardiac ischemia with additional significant cardiac arrhythmia during the later phases of this hospitalization. Some initial nonspecific nausea without emesis during early phases of this hospitalization with excellent response to IV Zofran and no evidence of abdominal pain, GI bleed, etc. Patient was symptom-free at time of transfer. Note that IV fluids were given to correct his borderline renal insufficiency, hypokalemia, CPK elevation, etc. as above. Patient was also started on low-dose magnesium oxide on admission. - Patient Instructions Diet: Heart Healthy Diet (Strict no caffeine) Activity: No Strenuous Activities Driving: Do Not Drive Showering/Bathing: May Shower Notify Provider of: Increased Pain, Nausea and/or Vomiting Other/Special Instructions: Hospital transfer with tele grout sewer line repairer accompaniment - Discharge Plan Home Medications: Home Meds . [No Known Home Meds] 04/24/17 [History] Forms: ED Department Discharge, Interfacility Transfer EMTALA Referrals: PCP,Unknown [Ordering Only Provider] - - Discharge Summary/Plan Comment DC Time >30 min.: Yes (Coordination of care) Discharge Summary/Plan Comment: As above. Extensive precautions were given to the patient and his , who are in agreement with the treatment plan. - General Info Date of Service: 04/25/17 Admission Dx/Problem (Free Text: 1. Chest pain Functional Status: Reports: Pain Controlled, Tolerating Diet, Ambulating, Urinating. Denies: New Symptoms (Despite significant cardiac arrhythmia last night), Incentive Spirometry Numeric/FACES Score: 0 - Review of Systems General: Reports: No Symptoms. Denies: Fever, Weakness, Fatigue, Malaise, Chills, Night Sweats, Appetite (Appetite good) HEENT: Reports: No Symptoms. Denies: Dysphasia, Ear Pain, Eye Pain, Headaches, Post Nasal Drip, Sinus Congestion, Sore Throat, Rhinitis, Visual Changes Pulmonary: Reports: No Symptoms. Denies: Shortness of Breath, Pleuritic Chest Pain, Cough, Sputum, Hemoptysis, Wheezing Cardiovascular: Reports: No Symptoms. Denies: Chest Pain, Palpitations, Dyspnea on Exertion, Orthopnea, PND, Edema, Lightheadedness Gastrointestinal: Reports: No Symptoms, Other (No bowel movement during this hospitalization). Denies: Abdominal Pain, Constipation, Decreased Appetite, Diarrhea, Difficulty Swallowing, Flatus, Hematochezia, Melena, Nausea, Vomiting Genitourinary: Reports: No Symptoms. Denies: Dysuria, Frequency, Burning, Pain , Urgency, Incontinence, Hematuria, Retention, Flank Pain Musculoskeletal: Reports: No Symptoms. Denies: Neck Pain, Shoulder Pain, Arm Pain, Back Pain, Leg Pain Skin: Reports: No Symptoms. Denies: Diaphoresis, Bruising, Rash Neurological: Reports: No Symptoms. Denies: Confusion, Dizziness, Headache, Paresthesia, Syncope, Weakness Psychiatric: Reports: No Symptoms. Denies: Confusion, Depression, Anxiety, Agitation, Cravings, Hallucinations, Suicidal Ideation, Homicidal Ideation - Patient Data Vitals - Most Recent: Last Vital Signs Temp 36.6 C 04/25/17 07:59 Pulse 67 04/25/17 07:59 Resp 13 04/25/17 07:59 BP 123/80 04/25/17 07:59 Pulse Ox 99 04/25/17 07:59 Vital Signs (72 hours) 04/24/17 04/24/17 04/24/17 09:18 09:21 09:26 Temperature [ 36.9 C Oral] Pulse, 87 Peripheral Pulse, 71 61 Peripheral [ Right Pulse Oximetry] Respiratory 20 20 Rate Blood Pressure 134/67 Blood Pressure 143/67 H 131/84 [Right Upper Arm] O2 Sat by Pulse 100 100 Oximetry 04/24/17 04/24/17 04/24/17 09:42 09:57 10:12 Temperature [ Oral] Pulse, Peripheral Pulse, 58 L 55 L Peripheral [ Right Pulse Oximetry] Respiratory 17 18 20 Rate Blood Pressure Blood Pressure 118/84 127/83 127/74 [Right Upper Arm] O2 Sat by Pulse 100 100 100 Oximetry 04/24/17 04/24/17 04/24/17 10:36 10:42 12:00 Temperature [ 36.9 C 36.8 C Oral] Pulse, Peripheral Pulse, 57 L 49 L Peripheral [ Right Pulse Oximetry] Respiratory 21 H 20 Rate Blood Pressure Blood Pressure 127/74 123/76 [Right Upper Arm] O2 Sat by Pulse 100 100 100 Oximetry 04/24/17 04/24/17 04/24/17 14:00 16:00 16:57 Temperature [ 37.3 C 36.9 C Oral] Pulse, Peripheral Pulse, 95 50 L Peripheral [ Right Pulse Oximetry] Respiratory 12 12 Rate Blood Pressure Blood Pressure 139/83 130/72 [Right Upper Arm] O2 Sat by Pulse 100 100 98 Oximetry 04/24/17 04/24/17 04/24/17 18:00 20:00 23:50 Temperature [ 36.6 C 36.7 C Oral] Pulse, Peripheral Pulse, 55 L 48 L Peripheral [ Right Pulse Oximetry] Respiratory 12 12 Rate Blood Pressure Blood Pressure 131/68 131/74 [Right Upper Arm] O2 Sat by Pulse 100 98 99 Oximetry 04/25/17 04/25/17 04/25/17 04:00 06:00 07:59 Temperature [ 36.5 C 36.6 C Oral] Pulse, Peripheral Pulse, 56 L 67 Peripheral [ Right Pulse Oximetry] Respiratory 12 13 Rate Blood Pressure Blood Pressure 121/79 123/80 [Right Upper Arm] O2 Sat by Pulse 97 99 99 Oximetry Weight - Most Recent: 87.77 kg I&O - Last 24 hours: Intake & Output 04/24/17 04/25/17 04/25/17 22:59 06:59 14:59 Intake Total 1595 147 Output Total 200 1000 Balance 1395 -1000 147 Imaging Impressions - Last 24 hrs: environmental monitoring specialist shows significant bradycardia with lowest heart rate of 35 and frequent moderate bradycardia in the 30s to 50s. Additional frequent PACs, PVCs , and long pauses. His cardiac arrhythmia is improved at time of transfer with average heart rate in the 60s. Chest x-ray report from portable chest x-ray on 04/24/17 does show some mild evidence of right perihilar prominence of unknown etiology with no cardiomegaly , pulmonary infiltrates, CHF, pneumothorax, etc. By my evaluation some evidence of borderline pulmonary obstructive disease, however. Lab Results - Last 24 hrs: Laboratory Results - last 24 hr 04/24/17 04/24/17 04/24/17 Range/Units 14:55 14:55 20:40 WBC (4.0-10.2) K/uL RBC (4.33-5.41) M/uL Hgb (13.1-16.8) g/dL Hct (39.0-49.0) % MCV (84.0-98.0) fL MCH (28.2-33.3) pg MCHC (31.7-36.0) g/dL RDW (11.2-14.1) % Plt Count (150-350) K/uL Neut % (Auto) (45.0-80.0) % Lymph % (Auto) (10.0-50.0) % Towns % (Auto) (2.0-14.0) % Eos % (Auto) (0.0-5.0) % Baso % (Auto) (0.0-2.0) % Neut # (Auto) (1.40-7.00) K/uL Lymph # (Auto) (0.50-3.50) K/uL Towns # (Auto) (0.00-1.00) K/uL Eos # (Auto) (0.00-0.50) K/uL Baso # (Auto) (0.00-0.20) K/uL Sodium (136-145) mmol/L Potassium (3.5-5.1) mmol/L Chloride (98-107) mmol/L Carbon Dioxide (21.0-32.0) mmol/L BUN (7-18) mg/dL Creatinine (0.51-1.17) mg/dL Est Cr Clr Drug Dosing mL/min Estimated GFR (MDRD) mL/min Glucose (74-106) mg/dL Hemoglobin A1c (4.3-5.7) % Lactic Acid 1.9 (0.4-2.0) mmol/L Calcium (8.5-10.1) mg/dL Magnesium (1.8-2.4) mg/dL Total Bilirubin (0.2-1.0) mg/dL AST (15-37) U/L ALT (12-78) U/L Alkaline Phosphatase (46-116) IU/L Creatine Kinase 395 H 348 H (26-308) U/L Creatine Kinase Index 0.2 0.2 (0.0-2.5) % CK-MB (CK-2) 0.70 0.70 (0.00-3.60) ng/mL Troponin I 0.000 0.000 (0.000-0.056) ng/mL Total Protein (6.4-8.2) g/dL Albumin (3.4-5.0) g/dL Triglycerides (30-150) mg/dL Cholesterol (100-200) mg/dL LDL Cholesterol, Calc (0-100) mg/dL HDL Cholesterol (40-60) mg/dL 04/25/17 04/25/17 04/25/17 Range/Units 06:35 06:35 06:35 WBC 7.8 (4.0-10.2) K/uL RBC 4.62 (4.33-5.41) M/uL Hgb 13.3 (13.1-16.8) g/dL Hct 39.7 (39.0-49.0) % MCV 85.9 (84.0-98.0) fL MCH 28.8 (28.2-33.3) pg MCHC 33.5 (31.7-36.0) g/dL RDW 13.6 (11.2-14.1) % Plt Count 243 (150-350) K/uL Neut % (Auto) 72.0 (45.0-80.0) % Lymph % (Auto) 18.9 (10.0-50.0) % Towns % (Auto) 9.0 (2.0-14.0) % Eos % (Auto) 0.0 (0.0-5.0) % Baso % (Auto) 0.1 (0.0-2.0) % Neut # (Auto) 5.61 (1.40-7.00) K/uL Lymph # (Auto) 1.47 (0.50-3.50) K/uL Towns # (Auto) 0.70 (0.00-1.00) K/uL Eos # (Auto) 0.00 (0.00-0.50) K/uL Baso # (Auto) 0.01 (0.00-0.20) K/uL Sodium 139 (136-145) mmol/L Potassium 4.4 (3.5-5.1) mmol/L Chloride 106 (98-107) mmol/L Carbon Dioxide 25.3 (21.0-32.0) mmol/L BUN 11 (7-18) mg/dL Creatinine 1.05 (0.51-1.17) mg/dL Est Cr Clr Drug Dosing 98.20 mL/min Estimated GFR (MDRD) > 60 mL/min Glucose 126 H (74-106) mg/dL Hemoglobin A1c 5.8 H (4.3-5.7) % Lactic Acid (0.4-2.0) mmol/L Calcium 9.0 (8.5-10.1) mg/dL Magnesium 1.9 (1.8-2.4) mg/dL Total Bilirubin 0.3 (0.2-1.0) mg/dL AST 19 (15-37) U/L ALT 20 (12-78) U/L Alkaline Phosphatase 55 (46-116) IU/L Creatine Kinase 267 (26-308) U/L Creatine Kinase Index 0.2 (0.0-2.5) % CK-MB (CK-2) 0.60 (0.00-3.60) ng/mL Troponin I 0.000 (0.000-0.056) ng/mL Total Protein 7.0 (6.4-8.2) g/dL Albumin 3.3 L (3.4-5.0) g/dL Triglycerides 79 (30-150) mg/dL Cholesterol 166 (100-200) mg/dL LDL Cholesterol, Calc 88 (0-100) mg/dL HDL Cholesterol 62 H (40-60) mg/dL 04/25/17 Range/Units 06:35 WBC (4.0-10.2) K/uL RBC (4.33-5.41) M/uL Hgb (13.1-16.8) g/dL Hct (39.0-49.0) % MCV (84.0-98.0) fL MCH (28.2-33.3) pg MCHC (31.7-36.0) g/dL RDW (11.2-14.1) % Plt Count (150-350) K/uL Neut % (Auto) (45.0-80.0) % Lymph % (Auto) (10.0-50.0) % Towns % (Auto) (2.0-14.0) % Eos % (Auto) (0.0-5.0) % Baso % (Auto) (0.0-2.0) % Neut # (Auto) (1.40-7.00) K/uL Lymph # (Auto) (0.50-3.50) K/uL Towns # (Auto) (0.00-1.00) K/uL Eos # (Auto) (0.00-0.50) K/uL Baso # (Auto) (0.00-0.20) K/uL Sodium (136-145) mmol/L Potassium (3.5-5.1) mmol/L Chloride (98-107) mmol/L Carbon Dioxide (21.0-32.0) mmol/L BUN (7-18) mg/dL Creatinine (0.51-1.17) mg/dL Est Cr Clr Drug Dosing mL/min Estimated GFR (MDRD) mL/min Glucose (74-106) mg/dL Hemoglobin A1c (4.3-5.7) % Lactic Acid 1.5 (0.4-2.0) mmol/L Calcium (8.5-10.1) mg/dL Magnesium (1.8-2.4) mg/dL Total Bilirubin (0.2-1.0) mg/dL AST (15-37) U/L ALT (12-78) U/L Alkaline Phosphatase (46-116) IU/L Creatine Kinase (26-308) U/L Creatine Kinase Index (0.0-2.5) % CK-MB (CK-2) (0.00-3.60) ng/mL Troponin I (0.000-0.056) ng/mL Total Protein (6.4-8.2) g/dL Albumin (3.4-5.0) g/dL Triglycerides (30-150) mg/dL Cholesterol (100-200) mg/dL LDL Cholesterol, Calc (0-100) mg/dL HDL Cholesterol (40-60) mg/dL Laboratory Tests 04/24/17 04/24/17 04/24/17 Range/Units 09:18 09:18 09:18 WBC 6.3 (4.0-10.2) K/uL RBC 5.00 (4.33-5.41) M/uL Hgb 14.3 (13.1-16.8) g/dL Hct 42.2 (39.0-49.0) % MCV 84.4 (84.0-98.0) fL MCH 28.6 (28.2-33.3) pg MCHC 33.9 (31.7-36.0) g/dL RDW 13.8 (11.2-14.1) % Plt Count 269 (150-350) K/uL Neut % (Auto) 47.9 (45.0-80.0) % Lymph % (Auto) 38.5 (10.0-50.0) % Towns % (Auto) 9.0 (2.0-14.0) % Eos % (Auto) 4.4 (0.0-5.0) % Baso % (Auto) 0.2 (0.0-2.0) % Neut # (Auto) 3.03 (1.40-7.00) K/uL Lymph # (Auto) 2.44 (0.50-3.50) K/uL Towns # (Auto) 0.57 (0.00-1.00) K/uL Eos # (Auto) 0.28 (0.00-0.50) K/uL Baso # (Auto) 0.01 (0.00-0.20) K/uL PT 10.5 (9.8-11.7) SEC INR 1.0 APTT 26.2 (23.5-30.0) SEC D-Dimer, Quantitative < 100 (0-400) ng/mL Sodium (136-145) mmol/L Potassium (3.5-5.1) mmol/L Chloride (98-107) mmol/L Carbon Dioxide (21.0-32.0) mmol/L BUN (7-18) mg/dL Creatinine (0.51-1.17) mg/dL Est Cr Clr Drug Dosing mL/min Estimated GFR (MDRD) mL/min Glucose (74-106) mg/dL Hemoglobin A1c (4.3-5.7) % Lactic Acid (0.4-2.0) mmol/L Uric Acid (2.6-7.2) mg/dL Calcium (8.5-10.1) mg/dL Magnesium (1.8-2.4) mg/dL Total Bilirubin (0.2-1.0) mg/dL AST (15-37) U/L ALT (12-78) U/L Alkaline Phosphatase (46-116) IU/L Creatine Kinase (26-308) U/L Creatine Kinase Index (0.0-2.5) % CK-MB (CK-2) (0.00-3.60) ng/mL Troponin I (0.000-0.056) ng/mL NT-Pro-B Natriuret Pep (0-125) pg/mL Total Protein (6.4-8.2) g/dL Albumin (3.4-5.0) g/dL Triglycerides (30-150) mg/dL Cholesterol (100-200) mg/dL LDL Cholesterol, Calc (0-100) mg/dL HDL Cholesterol (40-60) mg/dL TSH, Ultra Sensitive (0.358-3.740) mIU/mL 04/24/17 04/24/17 04/24/17 Range/Units 09:18 09:18 14:55 WBC (4.0-10.2) K/uL RBC (4.33-5.41) M/uL Hgb (13.1-16.8) g/dL Hct (39.0-49.0) % MCV (84.0-98.0) fL MCH (28.2-33.3) pg MCHC (31.7-36.0) g/dL RDW (11.2-14.1) % Plt Count (150-350) K/uL Neut % (Auto) (45.0-80.0) % Lymph % (Auto) (10.0-50.0) % Towns % (Auto) (2.0-14.0) % Eos % (Auto) (0.0-5.0) % Baso % (Auto) (0.0-2.0) % Neut # (Auto) (1.40-7.00) K/uL Lymph # (Auto) (0.50-3.50) K/uL Towns # (Auto) (0.00-1.00) K/uL Eos # (Auto) (0.00-0.50) K/uL Baso # (Auto) (0.00-0.20) K/uL PT (9.8-11.7) SEC INR APTT (23.5-30.0) SEC D-Dimer, Quantitative (0-400) ng/mL Sodium 140 (136-145) mmol/L Potassium 3.4 L (3.5-5.1) mmol/L Chloride 103 (98-107) mmol/L Carbon Dioxide 24.5 (21.0-32.0) mmol/L BUN 8 (7-18) mg/dL Creatinine 1.18 H (0.51-1.17) mg/dL Est Cr Clr Drug Dosing 87.74 mL/min Estimated GFR (MDRD) > 60 mL/min Glucose 113 H (74-106) mg/dL Hemoglobin A1c (4.3-5.7) % Lactic Acid 2.5 H (0.4-2.0) mmol/L Uric Acid 6.9 (2.6-7.2) mg/dL Calcium 9.3 (8.5-10.1) mg/dL Magnesium 1.7 L (1.8-2.4) mg/dL Total Bilirubin 0.3 (0.2-1.0) mg/dL AST 24 (15-37) U/L ALT 23 (12-78) U/L Alkaline Phosphatase 67 (46-116) IU/L Creatine Kinase 405 H 395 H (26-308) U/L Creatine Kinase Index 0.2 0.2 (0.0-2.5) % CK-MB (CK-2) 0.80 0.70 (0.00-3.60) ng/mL Troponin I 0.000 0.000 (0.000-0.056) ng/mL NT-Pro-B Natriuret Pep 9 (0-125) pg/mL Total Protein 8.3 H (6.4-8.2) g/dL Albumin 4.1 (3.4-5.0) g/dL Triglycerides (30-150) mg/dL Cholesterol (100-200) mg/dL LDL Cholesterol, Calc (0-100) mg/dL HDL Cholesterol (40-60) mg/dL TSH, Ultra Sensitive 1.496 (0.358-3.740) mIU/mL 04/24/17 04/24/17 04/25/17 Range/Units 14:55 20:40 06:35 WBC 7.8 (4.0-10.2) K/uL RBC 4.62 (4.33-5.41) M/uL Hgb 13.3 (13.1-16.8) g/dL Hct 39.7 (39.0-49.0) % MCV 85.9 (84.0-98.0) fL MCH 28.8 (28.2-33.3) pg MCHC 33.5 (31.7-36.0) g/dL RDW 13.6 (11.2-14.1) % Plt Count 243 (150-350) K/uL Neut % (Auto) 72.0 (45.0-80.0) % Lymph % (Auto) 18.9 (10.0-50.0) % Towns % (Auto) 9.0 (2.0-14.0) % Eos % (Auto) 0.0 (0.0-5.0) % Baso % (Auto) 0.1 (0.0-2.0) % Neut # (Auto) 5.61 (1.40-7.00) K/uL Lymph # (Auto) 1.47 (0.50-3.50) K/uL Towns # (Auto) 0.70 (0.00-1.00) K/uL Eos # (Auto) 0.00 (0.00-0.50) K/uL Baso # (Auto) 0.01 (0.00-0.20) K/uL PT (9.8-11.7) SEC INR APTT (23.5-30.0) SEC D-Dimer, Quantitative (0-400) ng/mL Sodium (136-145) mmol/L Potassium (3.5-5.1) mmol/L Chloride (98-107) mmol/L Carbon Dioxide (21.0-32.0) mmol/L BUN (7-18) mg/dL Creatinine (0.51-1.17) mg/dL Est Cr Clr Drug Dosing mL/min Estimated GFR (MDRD) mL/min Glucose (74-106) mg/dL Hemoglobin A1c (4.3-5.7) % Lactic Acid 1.9 (0.4-2.0) mmol/L Uric Acid (2.6-7.2) mg/dL Calcium (8.5-10.1) mg/dL Magnesium (1.8-2.4) mg/dL Total Bilirubin (0.2-1.0) mg/dL AST (15-37) U/L ALT (12-78) U/L Alkaline Phosphatase (46-116) IU/L Creatine Kinase 348 H (26-308) U/L Creatine Kinase Index 0.2 (0.0-2.5) % CK-MB (CK-2) 0.70 (0.00-3.60) ng/mL Troponin I 0.000 (0.000-0.056) ng/mL NT-Pro-B Natriuret Pep (0-125) pg/mL Total Protein (6.4-8.2) g/dL Albumin (3.4-5.0) g/dL Triglycerides (30-150) mg/dL Cholesterol (100-200) mg/dL LDL Cholesterol, Calc (0-100) mg/dL HDL Cholesterol (40-60) mg/dL TSH, Ultra Sensitive (0.358-3.740) mIU/mL 04/25/17 04/25/17 04/25/17 Range/Units 06:35 06:35 06:35 WBC (4.0-10.2) K/uL RBC (4.33-5.41) M/uL Hgb (13.1-16.8) g/dL Hct (39.0-49.0) % MCV (84.0-98.0) fL MCH (28.2-33.3) pg MCHC (31.7-36.0) g/dL RDW (11.2-14.1) % Plt Count (150-350) K/uL Neut % (Auto) (45.0-80.0) % Lymph % (Auto) (10.0-50.0) % Towns % (Auto) (2.0-14.0) % Eos % (Auto) (0.0-5.0) % Baso % (Auto) (0.0-2.0) % Neut # (Auto) (1.40-7.00) K/uL Lymph # (Auto) (0.50-3.50) K/uL Towns # (Auto) (0.00-1.00) K/uL Eos # (Auto) (0.00-0.50) K/uL Baso # (Auto) (0.00-0.20) K/uL PT (9.8-11.7) SEC INR APTT (23.5-30.0) SEC D-Dimer, Quantitative (0-400) ng/mL Sodium 139 (136-145) mmol/L Potassium 4.4 (3.5-5.1) mmol/L Chloride 106 (98-107) mmol/L Carbon Dioxide 25.3 (21.0-32.0) mmol/L BUN 11 (7-18) mg/dL Creatinine 1.05 (0.51-1.17) mg/dL Est Cr Clr Drug Dosing 98.20 mL/min Estimated GFR (MDRD) > 60 mL/min Glucose 126 H (74-106) mg/dL Hemoglobin A1c 5.8 H (4.3-5.7) % Lactic Acid 1.5 (0.4-2.0) mmol/L Uric Acid (2.6-7.2) mg/dL Calcium 9.0 (8.5-10.1) mg/dL Magnesium 1.9 (1.8-2.4) mg/dL Total Bilirubin 0.3 (0.2-1.0) mg/dL AST 19 (15-37) U/L ALT 20 (12-78) U/L Alkaline Phosphatase 55 (46-116) IU/L Creatine Kinase 267 (26-308) U/L Creatine Kinase Index 0.2 (0.0-2.5) % CK-MB (CK-2) 0.60 (0.00-3.60) ng/mL Troponin I 0.000 (0.000-0.056) ng/mL NT-Pro-B Natriuret Pep (0-125) pg/mL Total Protein 7.0 (6.4-8.2) g/dL Albumin 3.3 L (3.4-5.0) g/dL Triglycerides 79 (30-150) mg/dL Cholesterol 166 (100-200) mg/dL LDL Cholesterol, Calc 88 (0-100) mg/dL HDL Cholesterol 62 H (40-60) mg/dL TSH, Ultra Sensitive (0.358-3.740) mIU/mL BELL Results - Last 24 hrs: None Med Orders - Current: Current Medications Acetaminophen (Tylenol) 650 mg PO Q4H PRN PRN Reason: Pain Last Admin: 04/24/17 16:05 Dose: 650 mg Magnesium Oxide (Magnesium Oxide) 400 mg PO DAILY LEO Last Admin: 04/25/17 07:51 Dose: 400 mg Ondansetron HCl (Zofran) 4 mg IVPUSH Q6H PRN PRN Reason: Nausea/Vomiting Last Admin: 04/24/17 16:05 Dose: 4 mg Sodium Chloride (Saline Flush) 10 ml FLUSH ASDIRECTED PRN PRN Reason: Keep Vein Open Sodium Chloride (Saline Flush) 10 ml FLUSH Q12HR PRN PRN Reason: Keep Vein Open Temazepam (Restoril) 15 mg PO BEDTIME PRN PRN Reason: Insomnia Discontinued Medications Aspirin (Aspirin) 324 mg CHEW ONETIME ONE Stop: 04/24/17 09:22 Last Admin: 04/24/17 09:24 Dose: 324 mg Diphenhydramine HCl (Benadryl) 50 mg IVPUSH ONETIME ONE Stop: 04/24/17 09:26 Last Admin: 04/24/17 09:30 Dose: 50 mg Famotidine (Pepcid) 40 mg IVPUSH ONETIME ONE Stop: 04/24/17 09:22 Last Admin: 04/24/17 09:25 Dose: 40 mg Potassium Chloride/Dextrose/Sod Cl (D5 Ns With 20 Meq Kcl) 1,000 mls @ 100 mls/ hr IV ASDIRECTED LEO Last Admin: 04/25/17 07:52 Dose: 100 mls/hr Methylprednisolone Sodium Succinate (Solu-Medrol) 125 mg IVPUSH ONETIME ONE Stop: 04/24/17 09:27 Last Admin: 04/24/17 09:29 Dose: 125 mg Metoprolol Tartrate (Lopressor) 2.5 mg IVPUSH ONETIME ONE Stop: 04/24/17 09:22 Last Admin: 04/24/17 09:26 Dose: 2.5 mg Ondansetron HCl (Zofran) 4 mg IVPUSH ONETIME ONE Stop: 04/24/17 09:34 Last Admin: 04/24/17 09:35 Dose: 4 mg Ticagrelor (Brilinta) 180 mg PO ONETIME ONE Stop: 04/24/17 09:22 Last Admin: 04/24/17 09:25 Dose: 180 mg - Exam Quality Assessment: Reports: Supplemental Oxygen, DVT Prophylaxis. Denies: Central Line/PICC, Urine Catheter, Skin Breakdown, Restraints General: Reports: Alert, Oriented, Cooperative, No Acute Distress HEENT: Reports: Pupils Equal, Pupils Reactive, EOMI, Mucous Membr. Moist/[place] Neck: Reports: Supple, Trachea Midline, No JVD, No Thyromegaly, +2 Carotid Pulse wo Bruit. Denies: Lymphadenopathy Lungs: Reports: Clear to Auscultation, Normal Respiratory Effort. Denies: Rub Cardiovascular: Reports: Regular Rhythm, No Murmurs, Bradycardia (Borderline patient bradycardia and exam with no extrasystole at time of exam despite arrhythmia in telemetry as above). Denies: Irregular Rhythm (As below), Gallops , Rubs GI/Abdominal Exam: Normal Bowel Sounds, Soft, Non-Tender, No Organomegaly, No Distention, No Abnormal Bruit, No Mass, Pelvis Stable. No: Guarding (Male) Exam: Deferred Rectal (Males) Exam: Deferred Back Exam: Reports: Normal Inspection, Full Range of Motion. Denies: CVA Tenderness (L), CVA Tenderness (R), Muscle Spasm Extremities: Normal Inspection, Normal Range of Motion, Non-Tender, No Pedal Edema, Normal Capillary Refill. No: Kitty's Sign Skin: Reports: Warm, Dry, Intact. Denies: Ecchymosis Neurological: Reports: No New Focal Deficit, Other (No clinical orthostasis) Psy/Mental Status: Reports: Alert, Normal Affect, Normal Mood. Denies: Anxious , Depressed, Agitated, Suicidal Ideation, Homicidal Ideation, Hallucinations, Withdrawal Symptoms EKG INTERPRETATION EKG Date: 04/25/17 Time: 07:56 Rhythm: Other (Moderate sinus bradycardia) Rate (Beats/Min): 48 [place]: Normal (Neutral cardiac axis) P-Wave: Enlarged (Moderate diffuse biphasic P waves with poor R-wave progression in the anterior leads) QRS: RBBB (QRS interval of 0.10 seconds representing an incomplete right bundle branch block) ST-T: Other (Extension of T wave inversion from V1 to V2 with additional beginning T-wave inversion and nonspecific ST changes in lead 3, somewhat peaked T waves) Comparison: Change From Previous EKG (Moderate bradycardia and anterior wall cardiac ischemia since last EKG on 04/24/17) EKG Interpretation Comments: 1. Acute anterior wall cardiac ischemia 2. New sinus bradycardia 3. Incomplete right bundle branch block 4. Left atrial enlargement by EKG *Q Meaningful Use (DIS) - VTE *Q VTE Criteria *Q: - Stroke *Q Stroke Criteria *Q: - AMI *Q AMI Criteria *Q:
== END 2017-04-25 10:05 ==
LOC: LL.ED 09:16 → LL.MS 10:18
PROVIDERS: ADMIT Family Medicine; ATTEND Family Medicine
DX: R07.2 Precordial pain (principal); I45.10 Unspecified right bundle-branch block; I49.3 Ventricular premature depolarization; I49.1 Atrial premature depolarization; J43.1 Panlobular emphysema; I51.7 Cardiomegaly; F41.8 Other specified anxiety disorders; K21.9 Gastro-esophageal reflux disease without esophagitis; R74.8 Abnormal levels of other serum enzymes; E87.6 Hypokalemia; E83.42 Hypomagnesemia; R79.89 Other specified abnormal findings of blood chemistry; R73.9 Hyperglycemia, unspecified; N28.9 Disorder of kidney and ureter, unspecified; E88.09 Other disorders of plasma-protein metabolism, not elsewhere classified; Z71.6 Tobacco abuse counseling; Z88.8 Allergy status to other drugs, medicaments and biological substances; Z98.890 Other specified postprocedural states; F17.210 Nicotine dependence, cigarettes, uncomplicated
CPT/HCPCS: 36415; 71010; 80053; 80061; 82550; 82553; 83036; 83605; 83735; 83880; 84443; 84484; 84550; 85025; 85379; 85610; 85730; 93005; 96361; 96374; 96375; 96376; 99285; A9270; G0378; J1200; J2405; J2930; J3480; J7050; J3490; S0028